=== PATIENT | male | born 1980 | race Caucasian/White ===

== ENCOUNTER 2017-11-02 17:51 | Emergency (ER) | payer SELFPAY ==
[~2017-11-02] VITALS: Wt 108.9 kg
[~2017-11-02 17:51] MED LIST: AMOXICILLIN500 MG PO; AMOXIL500 MG PO; ANAPROX DS550 MG PO; ATARAX25 MG PO; ATIVAN1 MG PO; BACTRIM DS 8001 TA1 PO; BENADRYL50 MG PO; CATAPRES0.1 MG PO; CELEXA20 MG PO; CIPROFLOXACIN750 MG PO; COZAAR50 M1 PO; COZAAR50 MG PO; CYCLOBENZAPRINE10 MG PO; DARVOCET N 1001 TAB PO; DAYPRO600 M1 PO; DONNATAL1 TAB PO; FLEXERIL10 MG PO; FLEXERIL5 MG PO; HYDROCODONE BIT1 T11 PO; IBU-8800 MG PO; KEFLEX500 M1 PO; KEFLEX500 MG PO; LOPRESSOR50 MG PO; MEDROL DOSEPAK4 MG PO; MOTRIN600 MG PO; MOTRIN800 MG PO; NAPROSYN500 MG PO; NKHM; NORFLEX100 MG PO; PREDNICOT20 MG PO; PREDNISONE10 MG PO; PREDNISONE20 MG PO; ROBAXIN750 MG PO; ROBITUSSIN-AC 160 ML PO; SOMA350 MG PO; TRAMADOL HCL50 MG PO; ULTRAM50 MG PO; VICODIN 5/500 505 MG PO; VOLTAREN75 MG PO
[2017-11-02 17:54] VITALS: BP 172/97
[2017-11-02] MEDS ORDERED: FLONASE ALLERG9.9 ML NAS (18:31)
[2017-11-02] MEDS ORDERED: CLARITIN10 MG PO (18:31)
[2017-11-02] MEDS ORDERED: ROBITUSSIN DM 105 ML PO (18:31)
[2017-11-02] MEDS ORDERED: PREDNISONE10 MG PO (18:31)
== END 2017-11-02 18:31 | disposition home or self-care (01) ==
LOC: ED 17:51
DX: B34.9 Viral infection, unspecified (principal); R03.0 Elevated blood-pressure reading, without diagnosis of hypertension; F17.200 Nicotine dependence, unspecified, uncomplicated; F41.9 Anxiety disorder, unspecified

== ENCOUNTER 2018-03-18 01:33 | Emergency (ER) | payer SELFPAY ==
[~2018-03-18] VITALS: Ht 172.7 cm; Wt 104.3 kg
[~2018-03-18 01:33] MED LIST changes: +CLARITIN10 MG PO; +FLONASE ALLERG9.9 ML NAS; +ROBITUSSIN DM 105 ML PO
[2018-03-18] MEDS ORDERED: AMOXICILLIN500 M2 PO (01:44)
== END 2018-03-18 02:01 | disposition home or self-care (01) ==
LOC: ED 01:33
DX: H66.91 Otitis media, unspecified, right ear (principal); F17.200 Nicotine dependence, unspecified, uncomplicated; Z79.899 Other long term (current) drug therapy

== ENCOUNTER 2018-09-13 21:32 | Emergency (ER) | payer SELFPAY ==
[~2018-09-13] VITALS: Ht 172.7 cm; Wt 97.5 kg
[~2018-09-13 21:32] MED LIST changes: +AMOXICILLIN500 M2 PO
[2018-09-13 21:34] VITALS: BP 147/93
[2018-09-13] MEDS ORDERED: NAPROSYN500 MG PO (23:35)
[2018-09-13] MEDS ORDERED: CYCLOBENZAPRINE10 MG PO (23:35)
[2018-09-13] MEDS ORDERED: PREDNISONE50 MG PO (23:35)
== END 2018-09-13 23:37 | disposition home or self-care (01) ==
LOC: ED 21:32
DX: M54.9 Dorsalgia, unspecified (principal); I10 Essential (primary) hypertension; F17.200 Nicotine dependence, unspecified, uncomplicated; Z79.2 Long term (current) use of antibiotics; X50.9XXA Other and unspecified overexertion or strenuous movements or postures, initial encounter; Y93.89 Activity, other specified; Y92.89 Other specified places as the place of occurrence of the external cause; Y99.8 Other external cause status

== ENCOUNTER 2019-04-24 22:17 | Emergency (ER) | payer SELFPAY ==
[~2019-04-24] VITALS: Ht 167.6 cm; Wt 90.7 kg
[~2019-04-24 22:17] MED LIST changes: +PREDNISONE50 MG PO
[2019-04-24 22:19] VITALS: BP 143/93
== END 2019-04-24 22:56 | disposition home or self-care (01) ==
LOC: ED 22:17
DX: T63.441A Toxic effect of venom of bees, accidental (unintentional), initial encounter (principal); L53.0 Toxic erythema; I10 Essential (primary) hypertension; F17.200 Nicotine dependence, unspecified, uncomplicated; Z79.2 Long term (current) use of antibiotics; Z79.899 Other long term (current) drug therapy; Y92.89 Other specified places as the place of occurrence of the external cause

== ENCOUNTER 2019-09-11 22:33 | Emergency (ER) | payer SELFPAY ==
[~2019-09-11] VITALS: Ht 167.6 cm; Wt 88.9 kg
[2019-09-11 22:34] VITALS: BP 154/95
[2019-09-11] MEDS ORDERED: LOSARTAN POTASS50 M1 PO (22:36)
[2019-09-11] MEDS ORDERED: SEPTDS PO (22:54)
== END 2019-09-11 22:59 ==
LOC: ED 22:33
DX: L03.032 Cellulitis of left toe (principal); I10 Essential (primary) hypertension; E78.00 Pure hypercholesterolemia, unspecified; F17.200 Nicotine dependence, unspecified, uncomplicated

== ENCOUNTER 2019-09-13 21:16 | Emergency (ER) | payer SELFPAY ==
[~2019-09-13] VITALS: Ht 167.6 cm; Wt 88.9 kg
[~2019-09-13 21:16] MED LIST changes: +LOSARTAN POTASS50 M1 PO; +SEPTDS PO
[2019-09-13 21:18] VITALS: BP 142/80
[2019-09-13] MEDS ORDERED: NORCO 5-325 TA1 EACH PO (22:13)
== END 2019-09-13 22:16 | disposition home or self-care (01) ==
LOC: ED 21:16
DX: S62.327A Displaced fracture of shaft of fifth metacarpal bone, left hand, initial encounter for closed fracture (principal); I10 Essential (primary) hypertension; E78.00 Pure hypercholesterolemia, unspecified; F17.200 Nicotine dependence, unspecified, uncomplicated; Z79.2 Long term (current) use of antibiotics; Z79.899 Other long term (current) drug therapy; W22.8XXA Striking against or struck by other objects, initial encounter; Y93.89 Activity, other specified; Y92.89 Other specified places as the place of occurrence of the external cause; Y99.8 Other external cause status

== ENCOUNTER 2019-09-24 19:52 | Emergency (ER) | payer SELFPAY ==
[~2019-09-24] VITALS: Wt 90.3 kg
[~2019-09-24 19:52] MED LIST changes: +NORCO 5-325 TA1 EACH PO
[2019-09-24 19:54] VITALS: BP 173/94
== END 2019-09-24 20:50 | disposition home or self-care (01) ==
LOC: ED 19:52
DX: S62.327D Displaced fracture of shaft of fifth metacarpal bone, left hand, subsequent encounter for fracture with routine healing (principal); I10 Essential (primary) hypertension; E78.00 Pure hypercholesterolemia, unspecified; F17.200 Nicotine dependence, unspecified, uncomplicated; Z79.2 Long term (current) use of antibiotics; Z79.899 Other long term (current) drug therapy; W22.8XXD Striking against or struck by other objects, subsequent encounter

== ENCOUNTER 2020-05-24 21:51 | Emergency (ER) | payer SELFPAY ==
[~2020-05-24] VITALS: Ht 170.1 cm; Wt 90.7 kg
[2020-05-24 21:55] VITALS: BP 163/100
[2020-05-24] MEDS ORDERED: Motrin,Rufen800 MG PO (23:45)
[2020-05-24] MEDS ORDERED: CYCLOBENZAPRINE5 M3 PO (23:45)
== END 2020-05-24 23:55 | disposition home or self-care (01) ==
LOC: ED 21:51
DX: M54.12 Radiculopathy, cervical region (principal); Z79.899 Other long term (current) drug therapy

== ENCOUNTER 2020-10-17 17:33 | Emergency (ER) | payer SELFPAY ==
[~2020-10-17] VITALS: Ht 170.1 cm; Wt 97.5 kg
[~2020-10-17 17:33] MED LIST changes: +CYCLOBENZAPRINE5 M3 PO; +Motrin,Rufen800 MG PO
[2020-10-17 17:57] VITALS: BP 146/98
[2020-10-17] MEDS ORDERED: MEDROL DOSEPAK4 MG PO ×2 (18:00)
== END 2020-10-17 18:10 | disposition home or self-care (01) ==
LOC: ED 17:33
DX: M10.9 Gout, unspecified (principal); Z87.891 Personal history of nicotine dependence

== ENCOUNTER 2020-11-02 08:11 | Emergency (ER) | payer SELFPAY ==
[~2020-11-02] VITALS: Wt 95.3 kg
[2020-11-02 08:34] LABS: BASO % 0.4 % (0.0-1.0); EOS # 0.1 10*3/uL (0.0-0.4); EOS % 0.7 % (1.0-4.0); HEMATOCRIT 46.8 % (42.0-52.0); LYMPH # 1.8 10*3/uL (1.3-4.4); LYMPH % 17.9 % (27.0-41.0); MEAN CELL VOLUME 91.8 fl (80.0-94.0); MEAN CORPUSCULAR HGB 32.2 pg (27.0-31.0); MEAN PLATELET VOLUME 8.7 fl (9.6-12.3); MONO # 0.7 10*3/uL (0.1-1.0); MONO % 6.5 % (3.0-9.0); NEUT # 7.4 10*3/uL (2.3-7.9); NEUT % 74.3 % (47.0-73.0); PLATELET COUNT AUTOMATED 257 10*3/uL (130-400); RED CELL DISTRI WIDTH 11.7 % (0-14.5)
[2020-11-02 08:44] LABS: ACT PARTIAL THROMBO TIME 29.1 SECONDS (20.0-32.1)
[2020-11-02 08:50] LABS: ALBUMIN 3.9 gm/dl (3.1-4.5); ALKALINE PHOSPHATASE 64 U/L (45-117); BUN 14 mg/dl (7-24); CHLORIDE 110 mmol/L (98-107); CREATININE 0.81 mg/dL (0.70-1.30); POTASSIUM 3.9 mmol/L (3.5-5.1); SGOT/AST 22 IU/L (3-35); SGPT/ALT 68 U/L (12-78); SODIUM 139 mmol/L (136-145); TOTAL PROTEIN 7.4 gm/dL (6.4-8.2)
[2020-11-02 08:51] LABS: LIPASE 124 U/L (73-393)
[2020-11-02 08:52] LABS: TROPONIN I < 0.015 ng/ml (<0.045)
[2020-11-02 12:47] VITALS: BP 128/94
== END 2020-11-02 14:16 | disposition left against medical advice (07) ==
LOC: ED 08:11
PROVIDERS: Emergency Medicine
DX: R07.9 Chest pain, unspecified (principal); R51.9 Headache, unspecified; I10 Essential (primary) hypertension; F41.9 Anxiety disorder, unspecified; E78.00 Pure hypercholesterolemia, unspecified; F17.200 Nicotine dependence, unspecified, uncomplicated

== ENCOUNTER → 2020-12-03 | Outpatient (CLI) | payer SELFPAY | END | disposition home or self-care (01) | LOC: COVID19 09:53 | PROVIDERS: ATTEND Internal Medicine | DX: Z11.52 Encounter for screening for COVID-19 (principal) ==

== ENCOUNTER → 2023-05-25 | Emergency (ER) | payer SELFPAY | LOC: ED 13:24 | DX: M25.511 Pain in right shoulder (principal); M54.2 Cervicalgia; Z53.21 Procedure and treatment not carried out due to patient leaving prior to being seen by health care provider ==

== ENCOUNTER 2023-05-28 08:29 | Emergency (ER) | payer SELFPAY ==
[~2023-05-28] VITALS: Ht 172.7 cm; Wt 93.0 kg
[2023-05-28 08:44] VITALS: BP 153/106
[2023-05-28] MEDS ORDERED: PREDNISONE50 MG PO (10:24)
== END 2023-05-28 10:29 | disposition home or self-care (01) ==
LOC: ED 08:29
DX: S46.911A Strain of unspecified muscle, fascia and tendon at shoulder and upper arm level, right arm, initial encounter (principal); I10 Essential (primary) hypertension; E78.00 Pure hypercholesterolemia, unspecified; F41.9 Anxiety disorder, unspecified; Z98.890 Other specified postprocedural states; F17.200 Nicotine dependence, unspecified, uncomplicated; X58.XXXA Exposure to other specified factors, initial encounter; Y93.39 Activity, other involving climbing, rappelling and jumping off; Y92.89 Other specified places as the place of occurrence of the external cause; Y99.8 Other external cause status

== ENCOUNTER 2023-06-27 02:05 | Emergency (ER) | payer SELFPAY ==
[~2023-06-27] VITALS: Ht 172.7 cm; Wt 93.0 kg
[2023-06-27 02:13] VITALS: BP 169/110
== END 2023-06-27 03:37 | disposition home or self-care (01) ==
LOC: ED 02:05
DX: U07.1 COVID-19 (principal); F41.9 Anxiety disorder, unspecified; I10 Essential (primary) hypertension; E78.00 Pure hypercholesterolemia, unspecified; Z98.890 Other specified postprocedural states; F17.200 Nicotine dependence, unspecified, uncomplicated